=== PATIENT | male | born 2005 ===

== ENCOUNTER 2025-01-28 15:15 | Outpatient (REF) | payer BC, SELFPAY ==
[2025-01-28 15:23] LABS: MANUAL DIFF FLAG NO
[2025-01-28 15:26] LABS: Appearance Urine Clear; Color Urine Yellow; Glucose Urine UA Negative (Negative); Leukocyte Esterase Urine Negative (Negative); Nitrite Urine Negative (Negative); Urine Blood Negative (Negative); Urine Ketones Negative (Negative); Urine Protein Negative (Neg-Trace)
[2025-01-28 15:30] LABS: Basophils Absolute Auto 0.1 X10*3/uL (0.0-0.2); Basophils Percent Auto 0.9 % (0-2); Eosinophils Absolute Auto 0.4 X10*3/uL (0.0-0.4); Eosinophils Percent Auto 6.7 % (0-4); Hematocrit 40.3 % (42.0-52.0); Hemoglobin 14.4 g/dl (14.0-18.0); Imm Gran Abs Auto 0.01 X10*3/uL (0.00-0.03); Imm Gran Pct Auto 0.2 % (0.0-0.4); Lymphocytes Absolute Auto 2.3 X10*3/uL (1.2-4.9); Lymphocytes Percent Auto 35.5 % (20-40); Mean Corpuscular HGB Conc 35.7 g/dl (31.0-36.0); Mean Corpuscular Hemoglobin 29.6 pg (27.0-33.0); Mean Corpuscular Volume 82.8 fL (80.0-98.0); Mean Platelet Volume 12.1 fL (9.4-12.4); Monocytes Absolute Auto 0.5 X10*3/uL (0.1-1.2); Monocytes Percent Auto 7.1 % (2-11); Neutrophils Absolute Auto 3.3 x10*3/uL (2.0-8.3); Neutrophils Percent Auto 49.6 % (45-73); Platelet Count 240 X10*3/uL (160-400); Red Blood Count 4.87 X10*6/uL (4.60-5.80); Red Cell Distribution Width 12.8 % (11.0-16.0); White Blood Count 6.6 X10*3/uL (4.8-10.8)
[2025-01-28 15:31] LABS: Bacteria Urine None Seen (None Seen); Hyaline Casts Urine 0-2 /LPF (0-2); RBC Urine 0-2 /HPF (0-2); Squamous Epithelial Cell Urine 0-2 /HPF (0-2); WBC Urine 0-5 /HPF (0-5)
--- OUTSIDE RECORDS SUMMARY | 2025-01-28 18:10 | XMS_ITS | Encounter Summary ---
Author Organization [facility] Address [address] [place] [address] Phone Care Team Providers Care Reaming Machine Operator Name Role Phone Janee Guzman MD Primary Care Provider [phone] Reason for Visit * Reason Onset Date Comments Med Refill 05/27/2022 Encounter Details Date Type Department Care Team (Late st Contact Info) Description 05/27/2022 Refill [facility] [place] [address] [place] [address] Janee Guzman MD [address] [place] [address] Attention deficit hyperactivity disorder (ADHD), combined type Social History Tobacco Use Types Packs/Day Years Used Date Smoking Tobacco: Never Smokeless Tobacco: Never Hunger/Food Answer Date Recorded In the last 12 months, did y ou or your family ever eat less than you felt you should because there wasn't enough money for food? No 06/19/2020 Stable Housing Answer Date Recorded Are you worried that in the next 2 months you may not have stable housing? No 06/19/2020 Transportation Concerns Answer Date Rec orded In the last 12 months, have you or your family ever had to go without healthcare because you didn't have a way to get there? No 06/19/2020 Hazards in Home Answer Date Recorded Think about the place you li ve. Do you have problems with any of the following? Pests (mice or roaches), mold, no/not working smoke detectors, water leaks, no window guards. No 2019 Financing Utilities Answer Date Recorde d In the last 12 months, has t he electric, gas, oil, or water company threatened to shut off your services in your home? No 06/19/2020 Safety at Home Answer Date Recorded Are you or your family worried about feeling saf e in your home? No 06/19/2020 Outside Support Answer Date Recorded Do you feel that you need mo re support from other people or programs to help you care for yourself or your family? No 06/19/2020 Understanding Health Concerns Answer Da te Recorded Do you need help understandi ng your or your child's healthcare needs (diagnosis, medications, plan, etc.)? No 06/19/2020 Financing Health Concerns Answer Date R ecorded In the last 12 months, was t here a time when your child needed to see a doctor or get medications or supplies but could not because of cost? No 06/19/2020 Missing School or Work Answer Date Miquel rded Did you or your child miss s chool or work because of a health problem that could have been avoided? No 06/19/2020 Sex and Gender Information Value Date Recorded Sex Assigned at Not on file Legal Sex Male 6:38 PM EDT Gender Identity Male 06/24/2021 6:10 PM EDT Sexual Orientation Straight 06/19/2020 4: 46 PM EDT documented as of this encounter Plan of Treatment Not on file documented as of this encounter Visit Diagnoses Diagnosis Attention deficit hyperactivity disorder (ADHD), combined type documented in this encounter Care Teams Reaming Machine Operator Relationship Specialty Start Date End Date Janee Guzman MD [address] [place] [address] PCP - General 03/01/18 documented as of this encounter
--- OUTSIDE RECORDS SUMMARY | 2025-01-28 18:10 | XMS_ITS ---
Author Organization Kulwant Barlow MD Address [address] [place], [place] [id number] Care Team Providers Care E Commerce Strategist Name Role Phone Kulwant Barlow Primary Care Provider [phone] Allergies No Known Allergies Results Component Value Reference Range Notes Complete Blood Count Auto Di ff Reviewed date:01/28/2025 05:26:10 PM Interpretation: Performing Lab:[facility], [address] [place] [phone] Notes/Report: White Blood Count 6.6 4.8-10.8 X10*3/uL Red Blood Count 4.87 4.60-5.80 X10*6/uL Hemoglobin 14.4 14.0-18.0 g/dl Hematocrit 40.3 42.0-52.0 % Mean Corpuscular Volume 82.8 80.0-98.0 fL Mean Corpuscular Hemoglobin 29.6 27.0-33.0 pg Mean Corpuscular HGB Conc 35.7 31.0-36.0 g/dl Red Cell Distribution Width 12.8 11.0-16.0 % Platelet Count 240 160-400 X10*3/uL Mean Platelet Volume 12.1 9.4-12.4 fL Neutrophils Percent Auto 49.6 45-73 % Imm Gran Pct Auto 0.2 0.0-0.4 % Lymphocytes Percent Auto 35.5 20-40 % Monocytes Percent Auto 7.1 2-11 % Eosinophils Percent Auto 6.7 0-4 % Basophils Percent Auto 0.9 0-2 % NRBC Pct Auto 0.0 0.0-0.2 /100WBC Neutrophils Absolute Auto 3.3 2.0-8.3 x10*3/u L Imm Gran Abs Auto 0.01 0.00-0.03 X10*3/uL Lymphocytes Absolute Auto 2.3 1.2-4.9 X10*3/u L Monocytes Absolute Auto 0.5 0.1-1.2 X10*3/uL Eosinophils Absolute Auto 0.4 0.0-0.4 X10*3/u L Basophils Absolute Auto 0.1 0.0-0.2 X10*3/uL NRBC Abs Auto 0.000 0.0-0.012 X10*3/uL Urinalysis and Microscopic Reviewed date:01/28/2025 05:25:48 PM Interpretation: Performing Lab:[facility], [address] [place] [phone] Notes/Report: Color Urine Yellow Appearance Urine Clear PH 7.0 5.0-9.0 Glucose Urine UA Negative Negative mg/dL Urine Blood Negative Negative Specific [place] - Urine 1.010 1.005-1.025 Urine Protein Negative Neg-Trace mg/dL Urine Ketones Negative Negative mg/dL Nitrite Urine Negative Negative Leukocyte Esterase Urine Negative Negative RBC Urine 0-2 0-2 /HPF WBC Urine 0-5 0-5 /HPF Squamous Epithelial Cell Urine 0-2 0-2 /HPF Bacteria Urine None Seen None Seen Hyaline Casts Urine 0-2 0-2 /LPF REASON FOR VISIT annual visit Social History Tobacco Use: Social History Observation Description Date Details (start date - stop date) Never Smoker NA - NA AUDIT-C (Standard) Question Answer Notes Did you have a drink containing alcohol in the p ast year? No Points 0 Interpretation Negative Tobacco Control (Standard) Question Answer Notes Tobacco use: Nonsmoker Vital Signs Blood pressure systolic 132 mm Hg 01/29/20 25 Blood pressure diastolic 60 mm Hg 025 Height 76.5 in 01/28/2025 Weight 185 lbs 01/28/2025 BMI 22.22 kg/m2 01/28/2025 BMI Percentile 40.39 % 01/28/2025 Encounters Encounter Location Date Provider Diagnosis Kulwant Barlow MD [address] [place] [address] [address] [place], [place] [id number] 01/28/2025 Kulwant Barlow Annual physical exam Z00.00 Assessments Encounter Date Diagnosis (ICD Code) Assessment Notes Treatment Notes Treatment Clinical Notes Section Notes 01/28/2025 Annual physical exam (ICD-10 - Z00.00) Plan Of Treatment Pending Test Test Name Order Date Comprehensive [place]. Panel Fast 5 Lipid Panel 01/28/2025 Next Appt Details Follow Up: 1 Year, Reason: Provider Name:Kulwant Brody iekathy, 01/23/2026 07:30:00 AM, [address], [address], [place], [id number], Provider Name:Kulwant Brody ier, 01/30/2026 02:30:00 PM, [address], [address], [place], [id number], Progress Notes * JAIMEJAQUELIN LoraineOB: [birth year] (19 yo M)Acc No.[id number]:01/28/2025 Progress Notes Patient:?GWENDOLYNHollie HAMMERhan Provider:?Kluwant Barlow MD :2005???Age:19 Y???Sex:Male Colt e:01/28/2025 [facility] [place] [place] Subjective: * Chief Complaints: * ???1. Annual visit. * HPI: ???Symptom(s):?patient is a 19 yo male here for annual visit. * ROS:?General/Constitutional:?Change in appetite?denies.?Chills?denies.?Fever?denies.?Ophthalmologic:?Blurred vision?denies.?Discharge?denies.?Pain?denies.?ENT:?Decreased hearing?denies.?Sore throat?denies.?Swollen glands?denies.?Endocrine:?Cold intolerance?denies.?Excessive thirst?denies.?Heat intolerance?denies.?Weight loss?denies.?Respiratory:?Cough?denies.?Shortness of breath at rest?denies.?Shortness of breath with exertion?denies.?Wheezing?denies.?Cardiovascular:?Chest pain at rest?denies.?Chest pain with exertion?denies.?Irregular heartbeat?denies.?Shortness of breath?denies.?Gastrointestinal:?Abdominal pain?denies.?Change in bowel habits?denies.?Diarrhea?denies.?Nausea?denies.?Rectal bleeding?denies.?Vomiting?denies .?Genitourinary:?Blood in urine?denies.?Difficulty urinating?denies.?Frequent urination?denies.?Musculoskeletal:?Painful joints?denies.?Weakness?denies.?Skin:?Dry skin?denies.?Itching?denies.?Denies?Mole(s),? changes in moles, new moles or any lesions of concern.?Denies?Photosensitivity.?Rash?denies.?Neurologic:?Dizziness?denies.?Fainting?denies.?Headache?denies.? * Medical History:? * Family History:?Father: barbara smith.?Mother: alive.?1 sister(s) . .? Mother and Fatjher? healthy. * Social History:?Tobacco Use:?Tobacco Control (Standard)?Tobacco use:?Nonsmoker.?Miscellaneous:?Caffeine: yes, frequency:. Children: no. Exercise: yes, hokey golf hikes. Living with: family. Travel outside of the [place]: no. ???Drug/Alcohol:?AUDIT-C (Standard)?Did you have a drink containing alcohol in the past year??No,?Points?0,?Interpretation?Negative.? * Medications:?None * Allergies:?N.K.D.A. Objective: * Vitals:?Ht: 76.5, Wt: 185, B UT:22.22, BP:132/60, Ht-cm: 194.31, Wt-k.92, Wt %: 84.34, BMI %: 40.39, Ht %: 99.33. * Examination: ???General Examination: ?GENERAL APPEARANCE:?well developed, well nourished, in no acute distress.?HEAD:?normocephalic, atraumatic.?EYES:?pupils equal, round, reactive to light and accommodation, sclera non-icteric.?EARS:?normal.?ORAL CAVITY:?mucosa moist.?THROAT:?clear.?NECK/THYROID:?neck supple, full range of motion, no cervical lymphadenopathy, no bruits.?SKIN:?warm and dry, no suspicious lesions.?HEART:?regular rate and rhythm, S1, S2 normal, no murmurs.?LUNGS:?clear to auscultation bilaterally.?ABDOMEN:?soft, nontender, nondistended, bowel sounds present, normal, no organomegaly , no masses palpable.?RECTAL EXAM:?not examined.?MALE GENITOURINARY:?circumcised, no testicular mass, testes descended bilaterally.?EXTREMITIES:?no clubbing, cyanosis, or edema.?NEUROLOGIC:?nonfocal, motor strength normal upper and lower extremities, sensory exam intact.? Assessment: * Assessment: 1.?Annual physical exam - Z0 0.00 (Primary)??? Plan: * Treatment: * Procedure Codes:?16908 VENIP UNCT, ROUTINE* * Follow Up:?1 Year * * The named appointment provid er may or may not be the originator of this progress note, and it is not deemed complete until electronically signed by the appointment provider. Sign off status: Pending * Provider:?Kulwant Barlow MD Date:?0 01/28/2025 Generated for Jr thornton/Vidal/eTransmitting on:?01/28/2025 06:09 PM EDT History and Physical Notes * HPI (History of Present Illness) Category Sub-Category Detail Notes Category Not es Symptom(s) patient is a 19 yo male here for annual visit Examination Category Sub-Category Detail Notes Category Not es General Examination GENERAL APPEARANCE: well dev eloped, well nourished, in no acute distress HEAD: normocephalic, atrau matic EYES: pupils equal, round, reactive to light and accommodation, sclera non-icteric EARS: normal THROAT: clear NECK/THYROID: neck supple, full ra nge of motion, no cervical lymphadenopathy, no bruits HEART: regular rate and rhy thm, S1, S2 normal, no murmurs LUNGS: clear to auscultatio n bilaterally ABDOMEN: soft, nontender, non distended, bowel sounds present, normal, no organomegaly , no masses palpable NEUROLOGIC: nonfocal, motor stre ngth normal upper and lower extremities, sensory exam intact SKIN: warm and dry, no ignacio picious lesions EXTREMITIES: no clubbing, cyanosi s, or edema MALE GENITOURINARY: circumcised, no test icular mass, testes descended bilaterally RECTAL EXAM: not examined ORAL CAVITY: mucosa moist
--- OUTSIDE RECORDS SUMMARY | 2025-01-28 18:10 | XMS_ITS | Encounter Summary ---
Author Organization [facility] Address [address] [place] [address] Phone Care Team Providers Care Chiropractor Assistant Name Role Phone Janee Guzman MD Primary Care Provider [phone] Encounter Details Date Type Department Care Team (Late st Contact Info) Description 04/08/2011 Conversion Encounter [facility] - [place] [address] [place] [address] [place] [address] Social History Tobacco Use Types Packs/Day Years Used Date Smoking Tobacco: Never Assessed Sex and Gender Information Value Date Recorded Sex Assigned at Not on file Legal Sex Male 6:38 PM EDT Gender Identity Male 06/24/2021 6:10 PM EDT Sexual Orientation Straight 06/19/2020 4: 46 PM EDT documented as of this encounter Plan of Treatment Not on file documented as of this encounter Visit Diagnoses Not on filedocumented in this encounter Care Teams Chiropractor Assistant Relationship Specialty Start Date End Date Janee Guzman MD [address] [place] [address] PCP - General 03/01/18 documented as of this encounter
--- OUTSIDE RECORDS SUMMARY | 2025-01-28 18:10 | XMS_ITS | Encounter Summary ---
Author Organization [facility] Address [address] [place] [address] Phone Care Team Providers Care Organizational Development Manager Name Role Phone Janee Guzman MD Primary Care Provider [phone] Reason for Visit * Reason Onset Date Comments Med Refill 06/28/2022 Encounter Details Date Type Department Care Team (Late st Contact Info) Description 06/28/2022 Refill [facility] - [place] [address] [place] [address] Janee Guzman MD [address] [place] [address] Attention deficit hyperactivity disorder (ADHD), combined type [...] type documented in this encounter Care Teams Organizational Development Manager Relationship Specialty Start Date End Date Janee Guzman MD [address] [place] [address] PCP - General 03/01/18 documented as of this encounter
--- OUTSIDE RECORDS SUMMARY | 2025-01-28 18:10 | XMS_ITS | Encounter Summary ---
Author Organization [facility] Address [address] [place] [address] Phone Care Team Providers Care Edge Kitter Name Role Phone Janee Guzman MD Primary Care Provider [phone] Reason for Visit * Reason Onset Date Comments Med Refill 04/27/2022 Encounter Details Date Type Department Care Team (Late st Contact Info) Description 04/27/2022 Refill [facility] - [place] [address] [place] [address] Janee Guzman MD [address] [place] [address] Attention deficit hyperactivity disorder (ADHD), combined type [...] type documented in this encounter Care Teams Edge Kitter Relationship Specialty Start Date End Date Janee Guzman MD [address] [place] [address] PCP - General 03/01/18 documented as of this encounter
--- OUTSIDE RECORDS SUMMARY | 2025-01-28 18:10 | XMS_ITS | Patient Health Record ---
Author Organization Kulwant Barlow MD Address [address] [place], [place] [id number] Care Team Providers Care Nail Making Machine Tender Name Role Phone Kulwant Barlow Primary Care Provider Allergies No Known Allergies Results Component Value Reference Range Notes Complete Blood Count Auto Di ff Reviewed date:01/28/2025 05:26:10 PM Interpretation: Performing Lab:[facility], [address] [place] [phone] Notes/Report: White Blood Count 6.6 4.8-10.8 X10*3/uL [...] Microscopic Reviewed date:01/28/2025 05:25:48 PM Interpretation: Performing Lab:[facility], [address] [place] [phone] Notes/Report: Color Urine Yellow Appearance Urine Clear PH 7.0 5.0-9.0 Glucose Urine UA Negative Negative mg/dL Urine Blood Negative Negative Specific [place] - Urine 1.010 1.005-1.025 Urine Protein Negative Neg-Trace mg/dL Urine Ketones Negative Negative mg/dL Nitrite Urine Negative Negative Leukocyte Esterase Urine Negative Negative RBC Urine 0-2 0-2 /HPF WBC Urine 0-5 0-5 /HPF Squamous Epithelial Cell Urine 0-2 0-2 /HPF Bacteria Urine None Seen None Seen Hyaline Casts Urine 0-2 0-2 /LPF Reason For Referral No Information Social History Tobacco Use: Social History Observation Description Date Details (start date - stop date) Never Smoker NA - NA AUDIT-C (Standard) Question Answer Notes Did you have a drink containing alcohol in the p ast year? No Points 0 Interpretation Negative Tobacco Control (Standard) Question Answer Notes Tobacco use: Nonsmoker Vital Signs Blood pressure diastolic 60 mm Hg 01/28/2025 BMI Percentile 40.39 % 01/28/2025 Height 76.5 in 01/28/2025 Blood pressure systolic 132 mm Hg 01/28/2025 Weight 185 lbs 01/28/2025 BMI 22.22 kg/m2 01/28/2025 Encounters Encounter Location Date Provider Diagnosis Kulwant Barlow MD [address] [place] [address] [address] [place], [place] [phone] 01/28/2025 Kulwant Barlow Annual physical exam Z00.00 Assessments Encounter Date Diagnosis (ICD Code) Assessment Notes Treatment Notes Treatment Clinical Notes Section Notes 01/28/2025 Annual physical exam (ICD-10 - Z00.00) Plan Of Treatment Pending Test Test Name Order Date Comprehensive [place]. Panel Fast Lipid Panel 01/28/2025 Next Appt Details Provider Name:Kulwant ravi, 01/23/2026 07:30:00 AM, [address] [place] [address], [address], [place], [place], [id number], Provider Name:Kulwant villatoror, 01/30/2026 02:30:00 PM, [address] [facility], [address], [place], [place], [id number], Insurance Providers Payer Name Payer Address Payer Phone Subscriber Number Group Number Insured Name Patient Relationship to Insured Coverage Start Date Coverage End Date [employer] [address] [place], [place] [phone] [id number] Mario Piedra Self - patient is the insured
--- OUTSIDE RECORDS SUMMARY | 2025-01-28 18:10 | XMS_ITS | Clinical Summary ---
Author Organization [facility] Address [address] [place] [address] Phone Care Team Providers Care Travel Guide Name Role Phone Janee Guzman MD Primary Care Provider [phone] Allergies Active Allergy Reactions Criticality Noted Date Comments Environmental Seasonal Medications Fluticasone-Salme terol (Advair Diskus) 250-50 MCG/ACT aerosol powderIndications :Mild persistent asthma without complication Inhale 2 puffs daily. Rinse mouth out after med. 1 each 5 2 Active Additional Information Patient not taking.Reported on 12/07/2022 albuterol HFA 108 (90 Base) MCG/ACT inhalerIndication s:Mild persistent asthma without complication Inhale 2 puffs every 4 (four) hours as needed for wheezing. 1 Units 2 Active Additional Information Patient not taking.Reported on 01/14/2023 methylphenidate 54 MG CR tabletIndications :Attention deficit hyperactivity disorder (ADHD), combined type Take 1 tablet (54 mg total) by mouth every morning. 30 tablet 3 Active Active Problems Problem Noted Date Diagnosed Date Seasonal allergic rhinitis due to pollen 021 Anxiety 05/30/2018 Major depressive disorder 05/30/2018 Attention deficit hyperactiv ity disorder (ADHD), combined type 05/30/2018 Immunizations Immunization Administration Dates Next Due DTaP 5 04/23/2010, 6,2005,07/08,2005 HPV Vaccine 9 Valent 06/04/2019,06/01/2018 Hep A, ped/adol 03/16/2007,09/08/2006 Hep B, ped/adol 2005,2005,2005 Hib (PRP-T) 06/08/2006, 5,2005,05/12 IPV 04/14/2009, 5,2005,05/12 Influenza, injectable, MDCK, preservative free, quadrivalent 09/14/2021,08/01/2020 Influenza, injectable, quadr ivalent, preservative free 08/26/2022,08/13/2019,08/30/2018,08/20,07/08/2016,08/08/2015 Influenza, injectable, trivalent 07/30/2014,07/25,08/17/2012 Influenza, injectable, triva lent, preservative free 07/07/2010,07/24/2009,08/01/2008,08/15,09/08/2006,2005,2005 MMR 04/23/2010,06/08/2006 Meningococcal B Trumenba 01/14/2023,07/01/2022 Meningococcal Conj (Menactra) MCV4P 05/12/2021,0 05/30/2017 Pneumococcal Conjugate 03/09/2006,2004,2005,05/12 Tdap 05/30/2017 Varicella 04/14/2009,03/09/2006 Family History Medical History Relation Name Comments No Known Problems Father's Brother Diabetes Maternal Grandfather Hyperlipidemia Maternal Grandfather Hypertension Maternal Grandfather Anxiety disorder Mother Depression Mother Colon cancer Paternal Grandfather Hearing loss Paternal Grandmother Thyroid disease Paternal Grandmother Relation Name Status Comments Father's Brother Maternal Grandfather Mother Paternal Grandfather Paternal Grandmother Social History Tobacco Use Types Packs/Day Years [...] Orientation Straight 06/19/2020 4: 46 PM EDT Last Filed Vital Signs Vital Sign Reading Time Taken Comments Blood Pressure 124/70 07/27/2023 10:35 AM EDT Pulse 88 07/27/2023 10:35 AM EDT Temperature 37.1 ??C (98.7 ??F) 07/27/2023 10:35 AM E DT Respiratory Rate 18 07/27/2023 10:35 AM EDT Oxygen Saturation 98% 07/27/2023 10:35 AM EDT Inhaled Oxygen Concentration - - Weight 76.3 kg (168 lb 2 oz) 07/27/2023 10:35 AM EDT Height 187.5 cm (6' 1.82 ) 07/27/2023 10:35 AM E DT Body Mass Index 21.69 07/27/2023 10:35 AM EDT Body Mass Index Percentile 44.11% 07/27/2023 10: 35 AM EDT Growth Chart: [facility] (Boys, 2-2 0 Years) Plan of Treatment Health Maintenance Due Date Last Done Comments Influenza Vaccines (#1) 2024 08/26/20, 09/14/2021, 08/01/2020, Additional history exists COVID-19 Vaccine (3 2023-2 5 season) 2024 04/25/2021, 04/04/2021 DTaP,Tdap,and Td Vaccines (7 - Td or Tdap) 05/30/2027 05/30/2017, 04/23/2010, 06/08/2006, Additional history exists Hepatitis B Vaccines Completed 2005, 2005, 2005 Pneumococcal Vaccine Completed 03/09/2006, 2005, 2005, Additional history exists HIB Vaccines Completed 06/08/2006, 08/24, 2005, Additional history exists Hepatitis A Vaccines Completed 03/16/2007, 09/08/20 06 IPV Vaccines Completed 04/14/2009, 08/24, 2005, Additional history exists Varicella Vaccines Completed 04/14/2009, 03/09/2006 MMR Vaccines Completed 04/23/2010, 06/08/2006 HPV Vaccines Completed 06/04/2019, 06/01/2018 Meningococcal Vaccine Completed 05/12/2021, 017 Men B Vaccine Completed 01/14/2023, 07/01/2022 Insurance [facility] HMO Care Teams Travel Guide Relationship Specialty Start Date End Date Janee Guzman MD [address] [facility] [place] [address] PCP - General 03/01/18
[2025-01-28 19:18] LABS: Alanine Aminotransferase 32 U/L (0-40); Albumin Level 4.6 g/dL (3.5-5.0); Alkaline Phosphatase 69 U/L (39-117); Anion Gap 11 (12-20); Aspartate Amino Transferase 31 U/L (5-37); Bilirubin Total 0.4 mg/dL (0.0-1.0); Blood Urea Nitrogen 19 mg/dL (9-16); Calcium 9.9 mg/dL (8.4-10.2); Carbon Dioxide 27 mmol/L (22-29); Chloride 106 mmol/L (96-108); Cholesterol 183 mg/dL (<200); Estimated Glomerular Filt Rate > 60; Glucose Fasting 87 mg/dL (60-99); HDL Cholesterol 48 mg/dL (>40); LDL Cholesterol Calculated 119 mg/dL (<100); Potassium 4.7 mmol/L (3.3-5.1); Sodium 139 mmol/L (135-145); Total Protein 7.5 g/dL (6.5-8.0); Triglycerides 81 mg/dL (<150)
== END 2025-01-28 15:16 | disposition home or self-care (01) ==
LOC: HO.LNP 15:15
PROVIDERS: Visit Provider Internal Medicine
DX: Z00.00 Encounter for general adult medical examination without abnormal findings (principal); Z13.6 Encounter for screening for cardiovascular disorders
CPT/HCPCS: 80053; 80061; 81001; 85025